=== PATIENT | male | born 1935 | race African-American/Black ===

== ENCOUNTER 2019-03-15 20:08 | Inpatient (IN) | payer MEDICARE, MEDICAID ==
[~2019-03-15] VITALS: Ht 180.3 cm; Wt 84.8 kg
[2019-03-15] MEDS ORDERED: CEFTRIAXONE 1 G PREMIX 50 ML IV ONE (20:45)
[2019-03-15] MEDS ORDERED: SODIUM CHLORIDE 0.9% 1000ML BAG (SEPSIS BOLUS) IV ONE (20:45)
[2019-03-15 20:58] LABS: BASOPHILS % 0.4 % (0.0-2.0); EOSINOPHILS % 1.9 % (0.0-5.0); HEMATOCRIT. 44.3 % (42.0-52.0); HEMOGLOBIN. 15.2 g/dL (14.0-18.0); LYMPHOCYTES % 17.1 % (20.0-50.0); MEAN CORPUSCULAR HEMOGLOBIN 30.9 pg (28.0-32.0); MEAN CORPUSCULAR VOLUME 90.2 fL (80.0-94.0); MEAN PLATELET VOLUME 7.2 fl (7.4-10.4); MONOCYTES % 4.8 % (2.0-8.0); NEUTROPHILS % 75.8 % (40.0-76.0); PLATELET 257 x1000/uL (130-400); RED BLOOD CELL COUNT 4.91 mill/uL (4.7-6.1); RED CELL DISTRIBUTION WIDTH 14.1 % (11.6-14.6)
[2019-03-15 21:04] LABS: CHLORIDE 107 mEq/L (98-107)
[2019-03-15 21:06] LABS: INR 1.1; PROTHROMBIN TIME 10.8 sec (9.6-11.0)
[2019-03-15 21:13] LABS: CREATINE KINASE 697 IU/L (39-308)
[2019-03-15 23:01] LABS: CLARITY URINE CLEAR (CLEAR); COLOR URINE YELLOW (YELLOW); KETONES URINE NEGATIVE (NEGATIVE); LEUKOCYTE ESTERASE URINE NEGATIVE (NEGATIVE); NITRITE URINE NEGATIVE (NEGATIVE); OCCULT BLOOD URINE 2+ (NEGATIVE); PH URINE 5.5 (4.5-8.0); PROTEIN URINE 4+ (NEGATIVE); UROBILINOGEN URINE 0.2 E.U./dL (0.2-1.0)
[2019-03-16] VITALS (7 sets, daily range): BP systolic 133–163; BP diastolic 75–95
[2019-03-16] MEDS ORDERED: IPRATROPIUM/ALBUTEROL 0.5-3(2.5)MG/3ML NEB INH PRN
[2019-03-16] MEDS ORDERED: LORAZEPAM 2MG/ML CPJ IV PRN
[2019-03-16] MEDS ORDERED: HYDROMORPHONE HCL/PF 2MG/ML CPJ IV PRN
[2019-03-16] MEDS ORDERED: ACETAMINOPHEN 325MG TABLET PO PRN
[2019-03-16] MEDS ORDERED: GUAIFENESIN 200MG/10ML SUGAR FREE UDC PO PRN
[2019-03-16] MEDS ORDERED: CLONIDINE 0.1MG TABLET PO PRN
[2019-03-16] MEDS ORDERED: NA PHOS,M-B/NA PHOS,DI-BA ENEMA 118ML PR PRN
[2019-03-16] MEDS ORDERED: ONDANSETRON HCL 4MG/2ML INJ IV PRN
[2019-03-16] MEDS ORDERED: MAGNESIUM/ALUMINUM HYDROXIDE/SIMETHICONE 30ML UDC PO PRN
[2019-03-16] MEDS ORDERED: DIPHENHYDRAMINE 50MG/ML VIAL IV PRN
[2019-03-16] MEDS ORDERED: HYDRALAZINE 20MG/ML VIAL IV PRN
[2019-03-16] MEDS ORDERED: DOCUSATE SODIUM 100MG CAPSULE PO PRN
[2019-03-16] MEDS ORDERED: HYDROCODONE/ACETAMINOPHEN 5/325MG TABLET PO PRN
[2019-03-16] MEDS: SODIUM CHLORIDE 0.45% 1,000 ML IV SCH (05:09)
[2019-03-16] MEDS: SODIUM CHLORIDE 0.9% INJ 3ML FLUSH IVF SCH ×3 (05:11→20:38)
[2019-03-16 06:28] LABS: BASOPHILS % 0.2 % (0.0-2.0); EOSINOPHILS % 2.6 % (0.0-5.0); HEMOGLOBIN. 13.2 g/dL (14.0-18.0); MEAN CORPUSCULAR HEMOGLOBIN 30.8 pg (28.0-32.0); MEAN CORPUSCULAR VOLUME 88.5 fL (80.0-94.0); MEAN PLATELET VOLUME 7.1 fl (7.4-10.4); NEUTROPHILS % 68.2 % (40.0-76.0); PLATELET 234 x1000/uL (130-400); RED BLOOD CELL COUNT 4.29 mill/uL (4.7-6.1); RED CELL DISTRIBUTION WIDTH 13.9 % (11.6-14.6)
[2019-03-16 06:38] LABS: CHLORIDE 112 mEq/L (98-107)
[2019-03-16 06:48] LABS: CREATINE KINASE 783 IU/L (39-308)
[2019-03-16 06:50] LABS: HDL CHOLESTEROL 38 mg/dL (40-59)
[2019-03-16 07:06] LABS: LDL CHOLESTEROL 85 mg/dL (5-100)
[2019-03-16] MEDS: ENOXAPARIN 40MG/0.4ML SYR SUBCUT SCH (08:38)
[2019-03-16] MEDS ORDERED: CHOL100036 MT (09:50)
[2019-03-16] MEDS ORDERED: SIMV10TA6 MT (09:50)
[2019-03-16] MEDS ORDERED: SILD100T69 PO (09:50)
[2019-03-16 17:16] LABS: CREATINE KINASE 812 IU/L (39-308)
[2019-03-16 17:17] LABS: CREATINE KINASE MB FRACTION 5.9 ng/mL (0.5-3.6)
[2019-03-17] MEDS: SODIUM CHLORIDE 0.9% INJ 3ML FLUSH IVF SCH ×3 (06:00→21:10)
[2019-03-17 08:00] VITALS: BP 155/97
[2019-03-17] MEDS: ENOXAPARIN 40MG/0.4ML SYR SUBCUT SCH (08:46)
[2019-03-17] MEDS: SODIUM CHLORIDE 0.45% 1,000 ML IV SCH (09:14)
[2019-03-17] MEDS ORDERED: LEVOFLOXACIN 500MG TABLET PO NR (11:15)
[2019-03-17] MEDS ORDERED: LEVOFLOXACIN 500MG PREMIX 100 ML IV SCH (11:30)
[2019-03-17 12:00] VITALS: BP 187/111
[2019-03-17] MEDS: AMLODIPINE 5MG TABLET PO SCH (15:24)
[2019-03-17 16:00] VITALS: BP 156/93
[2019-03-17] MEDS: NICOTINE 14MG PATCH TD SCH (16:52)
[2019-03-17 20:00] VITALS: BP 137/86
[2019-03-18] VITALS: BP 153/88
[2019-03-18 04:00] VITALS: BP 136/82
[2019-03-18 06:20] LABS: BASOPHILS % 0.3 % (0.0-2.0); EOSINOPHILS % 4.9 % (0.0-5.0); HEMATOCRIT. 37.6 % (42.0-52.0); HEMOGLOBIN. 13.2 g/dL (14.0-18.0); LYMPHOCYTES % 34.4 % (20.0-50.0); MEAN CORPUSCULAR HEMOGLOBIN 31.2 pg (28.0-32.0); MEAN CORPUSCULAR VOLUME 89.3 fL (80.0-94.0); MEAN PLATELET VOLUME 7.4 fl (7.4-10.4); MONOCYTES % 9.1 % (2.0-8.0); NEUTROPHILS % 51.3 % (40.0-76.0); PLATELET 247 x1000/uL (130-400); RED BLOOD CELL COUNT 4.21 mill/uL (4.7-6.1); RED CELL DISTRIBUTION WIDTH 13.4 % (11.6-14.6)
[2019-03-18] MEDS: SODIUM CHLORIDE 0.9% INJ 3ML FLUSH IVF SCH ×2 (06:42→14:00)
[2019-03-18 08:00] VITALS: BP 160/96
[2019-03-18 08:15] LABS: CHLORIDE 110 mEq/L (98-107)
[2019-03-18 08:27] LABS: CREATINE KINASE 379 IU/L (39-308)
[2019-03-18 08:30] LABS: CREATINE KINASE MB FRACTION 3.4 ng/mL (0.5-3.6)
[2019-03-18] MEDS: AMLODIPINE 5MG TABLET PO SCH (08:42)
[2019-03-18] MEDS: NICOTINE 14MG PATCH TD SCH ×2 (08:43→09:00)
[2019-03-18] MEDS: ENOXAPARIN 40MG/0.4ML SYR SUBCUT SCH (08:43)
[2019-03-18] MEDS ORDERED: LEVOFLOXACIN 250MG PREMIX 50 ML IV SCH ×2 (09:00→11:00)
[2019-03-18] MEDS: SODIUM CHLORIDE 0.45% 1,000 ML IV SCH (10:43)
[2019-03-18 12:00] VITALS: BP 154/89
[2019-03-18 13:57] VITALS: BP 154/89
[2019-03-18 16:00] VITALS: BP 132/78
== END 2019-03-18 17:14 | disposition home or self-care (01) | DRG 682 ==
LOC: ER 20:08 → 8WST 23:16 → EDBEDREQTM 23:21 → EDBEDREQSVC 23:21 → EDBEDREQ 23:21 → CANRESERV 03-16 00:22 → ENRESERV 03-16 00:22
PROVIDERS: ADMIT Internal Medicine; ATTEND Internal Medicine
DX: N17.0 Acute kidney failure with tubular necrosis (principal); G93.41 Metabolic encephalopathy; M62.82 Rhabdomyolysis; E46 Unspecified protein-calorie malnutrition; R65.10 Systemic inflammatory response syndrome (SIRS) of non-infectious origin without acute organ dysfunction; I13.0 Hypertensive heart and chronic kidney disease with heart failure and stage 1 through stage 4 chronic kidney disease, or unspecified chronic kidney disease; D64.9 Anemia, unspecified; E86.0 Dehydration; N18.9 Chronic kidney disease, unspecified; E78.00 Pure hypercholesterolemia, unspecified; E78.5 Hyperlipidemia, unspecified; F17.200 Nicotine dependence, unspecified, uncomplicated; R55 Syncope and collapse; W07.XXXA Fall from chair, initial encounter; E11.22 Type 2 diabetes mellitus with diabetic chronic kidney disease; I50.9 Heart failure, unspecified; I25.10 Atherosclerotic heart disease of native coronary artery without angina pectoris; N40.0 Benign prostatic hyperplasia without lower urinary tract symptoms; Z79.899 Other long term (current) drug therapy; Z91.19 Patient's noncompliance with other medical treatment and regimen; Y93.89 Activity, other specified; Y92.89 Other specified places as the place of occurrence of the external cause; Y99.8 Other external cause status; Z68.26 Body mass index [BMI] 26.0-26.9, adult
CPT/HCPCS: 36415; 71045; 78582; 80048; 80061; 82550; 82553; 82962; 83036; 83605; 83880; 84145; 84439; 84443; 84484; 85379; 93005; 93306; 93970; 96365; 97161; 99285; A9558; J0360; J0696; J1200; J1650; J1956; J2060; J7030; J7040; A4315